=== PATIENT | male | born 1985 | race Two or more races ===

== ENCOUNTER 2020-03-30 16:17 | Emergency (ER) | payer OTHER ==
[~2020-03-30] VITALS: Ht 167.6 cm; Wt 74.8 kg
[2020-03-30 16:49] VITALS: BP 129/66
[2020-03-30] MEDS ORDERED: CEFTRIAXONE 1 G VIAL IM ONE (17:00)
[2020-03-30] MEDS ORDERED: LIDOCAINE /MPF 1% VIAL 5 ML VIAL ONE (17:10)
[2020-03-30] MEDS ORDERED: CEFTRIAXONE 1 G VIAL ONE (17:10)
[2020-03-30 17:12] LABS: BILIRUBIN,URINE Negative (NEGATIVE); COLOR,URINE YELLOW (YELLOW); LEUKOCYTE ESTERASE ,URINE Small (NEGATIVE); NITRITE, URINE Negative (NEGATIVE); PH,URINE 8.5 (5.0-8.0); PROTEIN,URINE Trace mg/dl (NEGATIVE); UGLUCOSE Negative (NEGATIVE); UROBILINOGEN,URINE >=8.0 EU/dL (0.2)
[2020-03-30 17:18] LABS: BACTERIA,URINE 1+ /HPF (None Seen); RBC,URINE NONE SEEN /HPF (0-2); SQUAMOUS EPITHELIAL CELL,UR Few /HPF (None Seen)
== END 2020-03-30 17:32 | disposition home or self-care (01) ==
LOC: ER 16:24
DX: N34.2 Other urethritis (principal); R30.0 Dysuria; R36.9 Urethral discharge, unspecified; R82.81 Pyuria
CPT/HCPCS: 81001; 87086; 87491; 87591; 96372; 99283; J0696; J3490

== ENCOUNTER 2020-04-19 23:35 | Emergency (ER) | payer OTHER ==
[~2020-04-19] VITALS: Ht 170.2 cm; Wt 72.6 kg
[2020-04-20 01:02] VITALS: BP 141/86
[2020-04-20] MEDS ORDERED: AZITHROMYCIN 250 MG TABLET PO ONE (01:30)
[2020-04-20] MEDS ORDERED: CEFTRIAXONE 1 G VIAL IM ONE (01:30)
[2020-04-20] MEDS ORDERED: AZITHROMYCIN 250 MG TABLET ONE (01:57)
[2020-04-20] MEDS ORDERED: LIDOCAINE /MPF 1% VIAL 5 ML VIAL ONE (01:57)
[2020-04-20] MEDS ORDERED: CEFTRIAXONE 1 G VIAL ONE (01:57)
== END 2020-04-20 02:13 | disposition home or self-care (01) ==
LOC: ER 23:38
DX: N34.2 Other urethritis (principal); F17.200 Nicotine dependence, unspecified, uncomplicated; F10.10 Alcohol abuse, uncomplicated; Y90.9 Presence of alcohol in blood, level not specified; Z88.6 Allergy status to analgesic agent
CPT/HCPCS: 87491; 87591; 96372; 99283; J0696; J3490; 87086-TC

== ENCOUNTER 2020-04-24 21:30 | Emergency (ER) | payer OTHER ==
[~2020-04-24] VITALS: Ht 170.2 cm; Wt 68.0 kg
[2020-04-24 21:47] VITALS: BP 129/67
[2020-04-24] MEDS ORDERED: TDAP [DIPH/PERTUSSIS/TET] 0.5 ML VIAL IM ONE (21:57)
[2020-04-24] MEDS: TDAP [DIPH/PERTUSSIS/TET] 0.5 ML VIAL IM ONE (22:00)
== END 2020-04-24 22:46 | disposition home or self-care (01) ==
LOC: ER 21:33
DX: S61.411A Laceration without foreign body of right hand, initial encounter (principal); F17.200 Nicotine dependence, unspecified, uncomplicated; Z88.6 Allergy status to analgesic agent; W26.9XXA Contact with unspecified sharp object(s), initial encounter; Y93.89 Activity, other specified; Y92.89 Other specified places as the place of occurrence of the external cause; Y99.8 Other external cause status
CPT/HCPCS: 90715

== ENCOUNTER 2020-05-04 02:43 | Emergency (ER) | payer OTHER ==
[~2020-05-04] VITALS: Ht 170.2 cm; Wt 70.8 kg
[2020-05-04 02:43] VITALS: BP 126/62
[2020-05-04] MEDS ORDERED: PSEUDOEPHEDRINE HCL 30 MG TABLET ONE (03:18)
[2020-05-04] MEDS ORDERED: PSEUDOEPHEDRINE HCL 30 MG TABLET PO ONE (03:30)
[2020-05-04] MEDS ORDERED: PSEU120T57 PO (04:43)
== END 2020-05-04 04:51 | disposition home or self-care (01) ==
LOC: ER 02:45
DX: R09.89 Other specified symptoms and signs involving the circulatory and respiratory systems (principal); Z20.822 Contact with and (suspected) exposure to COVID-19; F17.210 Nicotine dependence, cigarettes, uncomplicated; Z88.6 Allergy status to analgesic agent
CPT/HCPCS: 87426; 87804; 99283; C9803

== ENCOUNTER 2020-07-31 01:41 | Emergency (ER) | payer OTHER ==
[~2020-07-31] VITALS: Ht 167.6 cm; Wt 63.5 kg
[2020-07-31 01:41] VITALS: BP 141/94
[~2020-07-31 01:41] MED LIST: PSEU120T57 PO
== END 2020-07-31 02:49 | disposition home or self-care (01) ==
LOC: ER 01:44
DX: K52.1 Toxic gastroenteritis and colitis (principal); T50.B95A Adverse effect of other viral vaccines, initial encounter; F17.200 Nicotine dependence, unspecified, uncomplicated; Z88.6 Allergy status to analgesic agent; Y92.89 Other specified places as the place of occurrence of the external cause